=== PATIENT | female | born 1950 | race Caucasian/White ===

== ENCOUNTER 2016-06-26 09:09 | Inpatient (IN) | payer OTHER ==
[2016-06-26] MEDS ORDERED: DUONEB 0.5 MG/3 MG NEB ONE (09:14)
[2016-06-26] MEDS ORDERED: SOLU-Medrol 125 MG VIAL IVP ONE (09:14)
[2016-06-26 09:15] VITALS: BMI 34.3
--- NOTE | 2016-06-26 09:16 | DR.GENAD ---
HPI - Complaint/Symptoms Chief Complaint Doctors Comments: Patient states that she had been having problems with breathing for the past three weeks. Has been diagnosed with bronchitis and the past three weeks has been receiving IM injections for bronchitis. Today her breathing became very labored. Patient denies a history of COPD and has only used inhalers this week. ROS - Review of Systems Eyes: No Symptoms Reported ENTM: No Symptoms Reported Respiratoy: No Symptoms Reported Cardiovascular: No Symptoms Reported Gastrointestinal/Abdominal: No Symptoms Reported Genitourinary: No Symptoms Reported Neurological: No Symptoms Reported Musculoskeletal: No Symptoms Reported Integumentary: No Symptoms Reported Hematologic/Lymphatic: No Symptoms Reported Endocrine: No Symptoms Reported Psychiatric: No Symptoms Reported All Other Systems: Reviewed and Negative PE - Vital Signs Vitals: Pulse Rate [Right Brachial] 110 Pulse Rate 115 Respiratory Rate 20 Blood Pressure [Left Arm] 129/79 Blood Pressure 171/110 O2 Sat by Pulse Oximetry 98 - General Limitations: No Limitations General Appearance: Alert, In Distress - Head Head Exam: Normal Inspection, Atraumatic - Eyes Eye exam: Normal Appearance, PERRL, EOMI - ENT ENT Exam: Normal Exam, Normal Oropharynx TM/Canal Exam: Bilateral Normal Nose Exam: Normal Nose Exam Mouth Exam: Normal Inspection Throat Exam: Normal Inspection - Neck Neck Exam: Normal Inspection - Chest Chest Inspection: Normal Inspection, Symmetric Chest Wall Rise - Respiratory Respiratory Exam: Accessory Muscle Use, Respiratory Distress Respiratory Exam: Bilateral Decreased Breath Sounds, Lower Wheezing - Cardiovascular Cardiovascular Exam: Regular Rate, Normal Rhythm - Abdominal Exam Abdominal Exam: Normal Inspection Abdominal Tenderness: negative: RUQ, RLQ, LUQ, LLQ, Epigastrium, Suprapubic, Diffuse, Mild, Moderate, Severe, Other - Extremities Extremities Exam: Normal Inspection, Edema (2-3+pitting) - Back Back Exam: Normal Inspection - Neurologic Neurological Exam: Alert, Oriented X3, CN II-XII Intact - Psychiatric Psychiatric Exam: Normal Affect, Normal Mood - Skin Skin Exam: Warm, Dry, Intact Course - Treatment Treatment: Duo Neb, Solu Medrol oxygen. Lungs clear. 0950 - Reevaluation 1st: Improved ROR - Labs Reviewed Result Diagrams: 06/26/16 09:33 06/26/16 09:33 Laboratory: WBC 16.2 X10^3/uL (3.6-10.0) H 06/26/16 09:33 RBC 4.52 X10^6/uL (3.5-5.4) 06/26/16 09:33 Hgb 12.5 g/dL (12.0-16.0) 06/26/16 09:33 Hct 37.9 % (36.0-47.0) 06/26/16 09:33 MCV 83.7 fL (80.0-100.0) 06/26/16 09:33 MCH 27.7 pg (27.0-34.0) 06/26/16 09:33 MCHC 33.1 g/dL (33.0-35.0) 06/26/16 09:33 RDW 13.0 % (11.6-16.5) 06/26/16 09:33 Plt Count 501 X10^3/uL (150.0-450.0) H 06/26/16 09:33 MPV 7.3 fL (7.4-11.0) L 06/26/16 09:33 Neut % 79.3 % (42.0-75.0) H 06/26/16 09:33 Lymph % 16.2 % (21.0-51.0) L 06/26/16 09:33 [place] % 4.0 % (0.0-13.0) 06/26/16 09:33 Eos % 0.3 % (0.9-2.9) L 06/26/16 09:33 Baso % 0.2 % (0.2-1.0) 06/26/16 09:33 Neut # 12.9 x10^3/uL (2.2-4.8) H 06/26/16 09:33 Lymph # 2.6 X10^3/uL (1.3-2.9) 06/26/16 09:33 [place] # 0.6 x10^3/uL (0.3-0.8) 06/26/16 09:33 Eos # 0.0 x10^3/uL (0.0-0.2) 06/26/16 09:33 Baso # 0.0 X10^3/uL (0.0-0.1) 06/26/16 09:33 Absolute Nucleated RBC 0.0 /100WBC 06/26/16 09:33 D-Dimer 2130 ng/mL (0-400) H* 06/26/16 09:33 Sample Site Lra 06/26/16 13:30 ABG pH 7.490 (7.35-7.45) H 06/26/16 13:30 ABG pCO2 37.0 mmHg (35.0-45.0) 06/26/16 13:30 ABG pO2 44.0 mmHg (80.0-100.0) L* 06/26/16 13:30 ABG HCO3 28.2 mmol/L (22-26) H 06/26/16 13:30 ABG O2 Saturation 84.0 % (90-100) L* 06/26/16 13:30 ABG Base Excess 4.7 mmol/L (-2.0-2.0) H 06/26/16 13:30 Dev Test Pos 06/26/16 13:30 A-a Gradient 59.0 mmHg 06/26/16 13:30 FiO2 21.000 06/26/16 13:30 Blood Gas Comments Wilber well cs 06/26/16 13:30 Sodium 145 mmol/L (136-145) 06/26/16 09:33 Corrected Sodium 148 mmol/L (136-145) H 06/26/16 09:33 Potassium 3.5 mmol/L (3.5-5.1) 06/26/16 09:33 Chloride 106 mmol/L (98-107) 06/26/16 09:33 Carbon Dioxide 24.3 mmol/L (21-32) 06/26/16 09:33 BUN 31 mg/dL (7-18) H 06/26/16 09:33 Creatinine 1.14 mg/dL (0.55-1.02) H 06/26/16 09:33 Est GFR (MDRD) Af Amer > 60 (>60) 06/26/16 09:33 Est GFR (MDRD) Non-Af 51 (>60) L 06/26/16 09:33 Glucose 206 mg/dL (65-99) H 06/26/16 09:33 Calcium 8.8 mg/dL (8.5-10.1) 06/26/16 09:33 Corrected Calcium 9.5 mg/dL (8.5-10.1) 06/26/16 09:33 Total Bilirubin 0.40 mg/dL (0.2-1.0) 06/26/16 09:33 AST 25 Units/L (15-37) 06/26/16 09:33 ALT 47 Units/L (12-78) 06/26/16 09:33 Alkaline Phosphatase 69 Units/L (46-116) 06/26/16 09:33 Total Protein 7.9 g/dL (6.4-8.2) 06/26/16 09:33 Albumin 3.1 g/dL (3.4-5.0) L 06/26/16 09:33 Globulin 4.8 g/dL (2.5-4.5) H 06/26/16 09:33 Albumin/Globulin Ratio 0.6 Ratio (1.1-2.1) L 06/26/16 09:33 - XRAY XRAY Interpreted by: Radiologist (Chest:The heart is enlarged. No definite congestive heart failure is noted. No definite acute alveolar infiltrates are identified in the right lung and left upper lung field. There is increased density in the retrocardiac area of the left lower lobe which could be on the basis of atelectasis, infiltrate, effusion or a combination. Upright PA and lateral chest examination may be of further diagnostic value. Repeat CxR (two view) The heart remains enlarged. No congestive heart failure is noted. The right lung and left upper lung borges are clear. Subsegmental atelectasis is present in the left perihilar region. The increased density described in the retrocardiac area of the left lower lobe on the prior examination appears to be predominately due to elevation of the left hemidiaphragm. No definite infiltrate or pleural effusion is identified.) - Diagnosis Discharge Problem: Respiratory distress, Cardiomegaly Reactive airway disease with wheezing Qualifiers: Asthma severity: unspecified severity Asthma complication type: with acute exacerbation Qualified Code(s): J45.901 - Unspecified asthma with (acute) exacerbation - Discharge Plan Condition: Stable - Follow ups/Referrals Follow ups/Referrals: CHAYITO SU[facility] [Primary Care Provider] - 3 days - Instructions
[2016-06-26] MEDS ORDERED: SOLU-Medrol 125 MG VIAL ONE (09:17)
[2016-06-26] MEDS: NS 1000 ML 1,000 ML IV SCH (09:19)
--- NOTE | 2016-06-26 09:36 | RAD ---
HISTORY: Dyspnea Study: Chest one view Comparison: None Findings: The heart is enlarged. No definite congestive heart failure is noted. No definite acute alveolar inf iltrates are identified in the right lung and left upper lung field. There is increased density in t he retrocardiac area of the left lower lobe which could be on the basis of atelectasis, infiltrate, effusion or a combination. Upright PA and lateral chest examination may be of further diagnostic arthur ue. IMPRESSION: Cardiomegaly without congestive heart failure Persistent increased density in the retrocardiac area of the left lower lobe. Differential diagnosis and recommendations as above Reported By:
[2016-06-26 09:43] LABS: BASOPHILS % (AUTO) 0.2 % (0.2-1.0); EOSINOPHILS % (AUTO) 0.3 % (0.9-2.9); HEMATOCRIT 37.9 % (36.0-47.0); HEMOGLOBIN 12.5 g/dL (12.0-16.0); LYMPHOCYTES # (AUTO) 2.6 X10^3/uL (1.3-2.9); LYMPHOCYTES % (AUTO) 16.2 % (21.0-51.0); MEAN CORPUSCULAR HEMOGLOBIN 27.7 pg (27.0-34.0); MEAN CORPUSCULAR HGB CONC 33.1 g/dL (33.0-35.0); MEAN CORPUSCULAR VOLUME 83.7 fL (80.0-100.0); MEAN PLATELET VOLUME 7.3 fL (7.4-11.0); MONOCYTES # (AUTO) 0.6 x10^3/uL (0.3-0.8); NEUTROPHILS # (AUTO) 12.9 x10^3/uL (2.2-4.8); NEUTROPHILS % (AUTO) 79.3 % (42.0-75.0); PLATELET COUNT 501 X10^3/uL (150.0-450.0); RED BLOOD COUNT 4.52 X10^6/uL (3.5-5.4); WHITE BLOOD COUNT 16.2 X10^3/uL (3.6-10.0)
[2016-06-26 09:53] LABS: ALANINE AMINOTRANSFERASE 47 Units/L (12-78); ALBUMIN 3.1 g/dL (3.4-5.0); ALKALINE PHOSPHATASE 69 Units/L (46-116); ASPARTATE AMINO TRANSFERASE 25 Units/L (15-37); BLOOD UREA NITROGEN 31 mg/dL (7-18); CALCIUM 8.8 mg/dL (8.5-10.1); CARBON DIOXIDE 24.3 mmol/L (21-32); CHLORIDE 106 mmol/L (98-107); COR CA(FOR HYPOALB) 9.5 mg/dL (8.5-10.1); COR NA(FOR HYPERGLY) 148 mmol/L (136-145); CREATININE 1.14 mg/dL (0.55-1.02); GLUCOSE 206 mg/dL (65-99); SODIUM 145 mmol/L (136-145); TOTAL PROTEIN 7.9 g/dL (6.4-8.2); eGFR BLACK RACES > 60 (>60); eGFR NON BLACK RACES 51 (>60)
--- NOTE | 2016-06-26 10:13 | RAD ---
HISTORY: Follow up abnormal chest x-ray Study: Chest two-view Comparison: June 26, 2016 9:29 a.m. Findings: The heart remains enlarged. No congestive heart failure is noted. The right lung and left upper lung borges are clear. Subsegmental atelectasis is present in the left perihilar region. The increased d ensity described in the retrocardiac area of the left lower lobe on the prior examination appears to be predominantly due to elevation of the left hemidiaphragm. No definite infiltrate or pleural effu fartun is identified. IMPRESSION: Cardiomegaly without congestive heart failure Subsegmental atelectasis left perihilar region The increased density noted on the AP film is demonstrated to be due to elevated left hemidiaphragm. Reported By:
[2016-06-26] MEDS ORDERED: LASIX IVP ONE ×2 (10:36→10:37)
--- NOTE | 2016-06-26 12:38 | CT ---
CTA chest with contrast per pulmonary embolism protocol Indication: Shortness breath with elevated D-dimer Comparison: none available Technique: Multiple axial images of the chest were obtained from the thoracic inlet to the upper abd omen after the administration of IV contrast.Coronal and Sagittal MIP images were also provided. Radiation dose reduction techniques were performed utilizing adjustment for MA/kVP based on patient body size. Findings: No central or segmental pulmonary arterial filling defect is identified. There is normal caliber of the pulmonary artery without CT evidence or right heart strain. The thyroid gland is normal. Heart size is enlarged with a small pericardial effusion. This the thor acic aorta is normal in caliber and configuration. Small amount of pericardial recess fluid. Moderat e left and small right-sided pleural effusions with interlobular septal thickening consistent with i nterstitial edema. There is compressive atelectasis of the lingula and bilateral lower lobes. Small nodular consolidation within the right upper lobe on axial image 52 likely represents infiltrate or scarring; however correlation followup chest CT in 12 months is recommended to ensure stability/reso lution. No enlarged mediastinal or hilar lymphadenopathy. Imaging of the upper abdomen demonstrates no acute inflammatory process. Review of bone windows demonstrates no acute osseous abnormality. IMPRESSION: 1. No PTE identified. 2. Cardiomegaly with moderate left and small right-sided pleural effusions with interlobular septal thickening consistent with volume overload and CHF. 3. Small round nodular opacity within the right upper lobe likely represents an infiltrate or scarri ng; however, correlation followup chest CT in 12 months is recommended to ensure stability/resolutio n. Reported By:
[2016-06-26 13:36] LABS: ABG BASE EXCESS 4.7 mmol/L (-2.0-2.0); ABG HCO3 28.2 mmol/L (22-26)
[2016-06-26 13:39] LABS: ABG ALLEN TEST POS
[2016-06-26] MEDS ORDERED: ZOFRAN INJ 4 MG VIAL IVP PRN (14:10)
[2016-06-26] MEDS ORDERED: MORPHINE SULFATE INJ 4 MG IVP PRN (14:11)
[2016-06-26] MEDS ORDERED: VENTOLIN or PROAIR HFA INH PRN (14:39)
[2016-06-26] MEDS: DUONEB 0.5 MG/3 MG NEB SCH ×2 (17:01→20:54)
[2016-06-26] MEDS: PriLOSEC PO SCH (20:10)
[2016-06-26] MEDS: LASIX IVP SCH (20:10)
[2016-06-26] MEDS: VITAMIN D3 PO SCH (20:11)
[2016-06-26] MEDS: PULMICORT NEB TX 0.5 MG NEB SCH (20:54)
[2016-06-26] MEDS ORDERED: CHOLECALCIFEROL PO SCH (21:00)
[2016-06-27] MEDS: DUONEB 0.5 MG/3 MG NEB SCH ×6 (00:43→21:04)
[2016-06-27] MEDS: NS 1000 ML 1,000 ML IV SCH ×3 (02:51→20:27)
[2016-06-27 07:03] LABS: ALANINE AMINOTRANSFERASE 38 Units/L (12-78); ALBUMIN 2.7 g/dL (3.4-5.0); ALKALINE PHOSPHATASE 60 Units/L (46-116); ASPARTATE AMINO TRANSFERASE 14 Units/L (15-37); BLOOD UREA NITROGEN 27 mg/dL (7-18); CALCIUM 8.6 mg/dL (8.5-10.1); CARBON DIOXIDE 26.2 mmol/L (21-32); CHLORIDE 107 mmol/L (98-107); COR CA(FOR HYPOALB) 9.6 mg/dL (8.5-10.1); COR NA(FOR HYPERGLY) 149 mmol/L (136-145); CREATININE 1.02 mg/dL (0.55-1.02); GLUCOSE 231 mg/dL (65-99); SODIUM 146 mmol/L (136-145); TOTAL PROTEIN 7.2 g/dL (6.4-8.2); eGFR BLACK RACES > 60 (>60); eGFR NON BLACK RACES 58 (>60)
[2016-06-27 07:34] LABS: BASOPHILS % (AUTO) 0.1 % (0.2-1.0); HEMATOCRIT 36.7 % (36.0-47.0); HEMOGLOBIN 11.9 g/dL (12.0-16.0); LYMPHOCYTES # (AUTO) 0.9 X10^3/uL (1.3-2.9); LYMPHOCYTES % (AUTO) 7.1 % (21.0-51.0); MEAN CORPUSCULAR HEMOGLOBIN 27.3 pg (27.0-34.0); MEAN CORPUSCULAR HGB CONC 32.4 g/dL (33.0-35.0); MEAN CORPUSCULAR VOLUME 84.2 fL (80.0-100.0); MEAN PLATELET VOLUME 7.4 fL (7.4-11.0); MONOCYTES # (AUTO) 0.3 x10^3/uL (0.3-0.8); MONOCYTES % (AUTO) 2.7 % (0.0-13.0); NEUTROPHILS # (AUTO) 11.1 x10^3/uL (2.2-4.8); NEUTROPHILS % (AUTO) 90.1 % (42.0-75.0); PLATELET COUNT 444 X10^3/uL (150.0-450.0); RED BLOOD COUNT 4.36 X10^6/uL (3.5-5.4); RED CELL DISTRIBUTION WIDTH 13.1 % (11.6-16.5); WHITE BLOOD COUNT 12.4 X10^3/uL (3.6-10.0)
--- NOTE | 2016-06-27 07:47 | RAD ---
HISTORY: Chest pain Study: Single view chest. Comparison: June 26, 2016. Findings: The trachea is midline. The cardiomediastinal silhouette remains enlarged. Chronic right basilar par enchymal disease remains. There is unchanged left midlung zone and left lower lobe airspace disease with a small to moderate size left basilar effusion. No other cardiopulmonary changes from prior obs erved. There is no pneumothorax. The bony thorax is grossly unchanged. IMPRESSION: 1. Unchanged left midlung zone and left lower lobe pleural parenchymal disease. 2. Cardiomegaly with chronic background interstitial changes, suggesting COPD. Reported By:
[2016-06-27 08:29] LABS: PLATELET MORPHOLOGY COMMENT NORMAL (NORMAL)
[2016-06-27] MEDS: VITAMIN D3 PO SCH ×2 (08:38→20:28)
[2016-06-27] MEDS: LASIX IVP SCH ×2 (08:38→20:28)
[2016-06-27] MEDS: ASPIRIN 81 MG CHEWTAB PO SCH (08:39)
[2016-06-27] MEDS: NORVASC TAB 5 MG PO SCH (08:39)
[2016-06-27] MEDS: PriLOSEC PO SCH (08:39)
[2016-06-27] MEDS: GLUCOTROL XL PO SCH (08:39)
[2016-06-27] MEDS: PULMICORT NEB TX 0.5 MG NEB SCH ×2 (09:08→21:04)
[2016-06-27] MEDS: LEVAQUIN PREMIX IV 750 MG 750 MG/150 ML BAG IV SCH (11:30)
[2016-06-27] MEDS: SOLU-Medrol 40 MG VIAL IVP SCH ×2 (14:08→22:13)
--- NOTE | 2016-06-27 14:53 | DR.H&P ---
H&P - History & Physical for Day of: H&P Date: 06/26/16 - Chief Complaint Chief Complaint: SHORTNESS OF BREATH, COUGH, CHEST CONGESTION - Allergies Allergies/Adverse Reactions: Allergies Allergy/AdvReac Type Severity Reaction Status Date / Time No Known Drug Allergy Allergy Verified 06/26/16 09:09 - History of Present Illness History of Present Illness: THIS IS A 65 YEAR OLD FEMALE, WHO IS FOLLOWED BY BELEN WASSERMAN. SHE PRESENTS TO THE EMERGENCY ROOM WITH COMPLAINTS OF SHORTNESS OF BREATH, COUGH, AND CHEST CONGESTION. PATIENT REPORTS SHE HAS BEEN TREATED FOR BRONCHITIS EARLIER IN THE WEEK BY HER PCP WITH IM ANTIBIOTIC INJECTIONS FOR THE PAST THREE WEEKS. SHE REPORTS WORSENING SYMPTOMS TODAY. SHE IS NOTED WITH LABORED RESPIRATIONS ON ARRIVAL WITH ACCESSORY MUSCLE USE. ON AUSCULTATION, LUNGS ARE DIMINISHED WITH BILATERAL LOWER LOBE WHEEZING. LABS, CHEST XRAY OBTAINED. CBC WNL EXCEPT: WBC 16.2. CMP WNLE EXCEPT: BUN/CREAT 31/1.14, GFR 51 , GLUCOSE 206, ALBUMIN 3.1. D-DIMER 2130. ABG ABNORMALS: PH 7.490, PO2 44.0, HCO3 28.2, O2 SATURATION 84.0, FIO2 21.0. CHEST CTA REPORTS NO PTE INDENTIFIED ; MODERATE LEFT AND SMALL RIGHT-SIDED PLEURAL EFFUSIONS; SMALL ROUND NODULAR OPACITY WITHIN THE RIGHT UPPER LOBE. PATIENT RECEIVED IV FLUIDS, DUONEBS, SOLUMEDROL, AND OXYGEN IN THE ER. WE WILL ADMIT PATIENT FOR FURTHER TREATMENT AND EVALUATION. WE WILL START DUONEBS, LASIX AND CONTINUE TO MONITOR. WE WILL FOLLOW UP WITH LABS AND CHEST XRAY IN AM. - Past Medical History Past Medical History: Diabetes, GERD, Hypertension Additional Medical History: [employer] Nailer is Dr. Bellamy- had a cardiac workup 7 years ago that was normal - Past Surgical History Surgical History: Hysterectomy - Family History Family Medical History: Diabetes Mellitus, Hypertension - Social History Does patient currently use any type of tobacco product: No Have you used tobacco products in the last 12 months: No Type of Tobacco Use: None Does any household member use tobacco: No Alcohol Use: None - Medications Home Medications: Albuterol Sulfate 0.083 % IN Q6H 06/26/16 [History Confirmed 06/26/16] Albuterol Sulfate [Ventolin Hfa Inhaler] 2 puff INH QID PRN 06/26/16 [History Confirmed 06/26/16] Amlodipine Besylate [NORVASC 5 MG *] 5 mg PO DAILY 06/26/16 [History Confirmed 06/26/16] Aspirin [Aspirin 81 mg Chewtab] 81 mg PO DAILY 06/26/16 [History Confirmed 06/26] Cholecalciferol [Vitamin D] 1,000 unit PO BID 06/26/16 [History Confirmed ] Glipizide [Glipizide XL 5 mg] 5 mg PO DAILY 06/26/16 [History Confirmed 06/26/16 ] Levofloxacin [Levaquin Tab 500 mg] 500 mg PO Q24H 06/26/16 [History Confirmed ] Omeprazole [Prilosec] 20 mg PO BID 06/26/16 [History Confirmed 06/26/16] - Review of Systems Constitutional: Weakness, Malaise Eyes: No Symptoms Reported. denies: Pain, Vision Change, Conjunctivae Inflammation, Eyelid Inflammation, Redness ENT: No Symptoms Reported. denies: Ear Pain, Ear Discharge, Nose Pain, Nose Discharge, Nose Congestion, Mouth Pain, Mouth Swelling, Throat Pain, Throat Swelling Respiratory: Cough, Shortness of Breath, SOB with Excertion, Sputum, Wheezing. denies: Hemoptysis, Pleuritic Pain Cardiovascular: No Symptoms Reported. denies: Chest Pain, Palpitations, Orthopnea, Paroxysmal Noc. Dyspnea, Edema, Light Headedness Gastrointestinal: No Symptoms Reported. denies: Nausea, Vomiting, Abdominal Pain, Diarrhea, Constipation, Melena, Hematochezia Genitourinary: No Symptoms Reported. denies: Dysuria, Frequency, Incontinence, Hematuria, Retention Musculoskeletal: No Symptoms Reported. denies: Shoulder Pain, Arm Pain, Back Pain, Hand Pain, Leg Pain, Foot Pain, Neck Pain Skin: No Symptoms Reported. denies: Rash, Lesions, Jaundice, Bruising, Wound, Ecchymosis Neurological: No Symptoms Reported. denies: Weakness, Numbness, Incoordination , Change in Speech, Confusion, Seizures - Physical Exam Vital Signs: Temperature 98.4 F Pulse Rate [Right Brachial] 111 Pulse Rate 100 Respiratory Rate 18 Blood Pressure [Left Arm] 120/75 O2 Sat by Pulse Oximetry 97 Oriented: Normal, Time, Person, Place Eyes: Normal. negative: Blurred Vision, Diplopia, Discharge, Pain, Redness, Photophobia Ear: Normal. negative: Swelling, Ecchymosis, Hemotypanum, Abrasion, Laceration Nose: Normal. negative: Injected, Discharge, Blood Throat: Red, Dry. negative: Tonsillar Hypertrophy, Exudate Respiratory: RUL Exp. Wheeze, LLL Exp. Wheeze Cardiovascular: Normal. negative: Murmur, Edema : Normal. negative: Dysuria, Hematuria, Frequency, Discharge, Bleeding, Auscultation: Bowel Sounds: Normal. negative: Bruit Palpation: Normal. negative: Spleen Enlarged, Liver Enlarged, Mass Pulsatile Tenderness: Normal. negative: Rebound, Guarding, Rigidity Skin: Decreased Turgur. negative: Diaphoresis, Wound, Bruising, Ecchymosis Musculoskeletal: Normal Psychiatric: Normal Mood Description: Calm, Appropriate Affect: Normal Speech Pattern: Clear, Appropriate - Assessment/Plan (1) Reactive airway disease with wheezing Qualifiers: Asthma severity: unspecified severity Asthma complication type: with acute exacerbation Qualified Code(s): J45.901 - Unspecified asthma with (acute) exacerbation Status: Acute Plan: ADMIT PATIENT, START DUONEBS, SUPPLEMENTAL OXYGEN, LASIX IV BID, MONITOR LABS AND CHEST XRAY. (2) Respiratory distress Status: Acute Plan: ABOVE. (3) Cardiomegaly Status: Chronic
--- NOTE | 2016-06-27 15:06 | PCM.PROG ---
Progress Note - Progress Note for Day of Date: 06/27/16 - Subjective Subjective: PATIENT CONTINUES WITH SHORTNESS OF BREATH WHILE ON SUPPLEMENTAL OXYGEN. SHE IS NOTED WITH A PERSISTENT, NON-PRODUCTIVE COUGH. A SPUTUM SAMPLE WAS COLLECTED YESTERDAY AND IS PENDING. ON AUSCULTATION, LUNGS ARE NOTED WITH BILATERAL WHEEZING THROUGHOUT. CBC WNL EXCEPT: WBC 12.4, HGB 11.9. CMP WNL EXCEPT: SODIUM 146, BUN 27, GFR 58, GLUCOSE 231, ALBUMIN 2.7. BNP 1290. CHEST XRAY REPORTS: UNCHANGED LEFT MIDLUNG ZONE AND LEFT LOWER LOBE PLEURAL PARENCHYMAL DISEASE; CARDIOMEGALY WITH CHRONIC BACKGROUND INTERSTITIAL CHANGES. WE WILL OBTAIN BLOOD CULTURES, START LEVAQUIN IV, SOLUMEDROL, AND CONTINUE DUONEBS, LASIX, AND MONITOR LABS AND CHEST XRAY. - Past Medical Family Social History Past Med/Fam/Surg Hx: No changes since H&P Allergies: Allergies No Known Drug Allergy Allergy (Verified 06/26/16 09:09) - Review of Systems ROS: No change since H&P - Vital Signs and I&O's Vital Signs: Temperature 98.4 F Pulse Rate [Right Brachial] 111 Pulse Rate 100 Respiratory Rate 18 Blood Pressure [Left Arm] 120/75 O2 Sat by Pulse Oximetry 97 Intake and Output: Intake & Output 06/25/16 06/26/16 06/27/16 06/28/16 11:59 11:59 11:59 11:59 Intake Total 2403 Output Total 1600 Balance 803 - Physical Exam Oriented: Normal, Time, Person, Place Eyes: Normal. negative: Blurred Vision, Diplopia, Discharge, Pain, Redness, Photophobia Ear: Normal. negative: Swelling, Ecchymosis, Hemotypanum, Abrasion, Laceration Nose: Normal. negative: Injected, Discharge, Blood Throat: Red, Dry. negative: Tonsillar Hypertrophy, Exudate Respiratory: Generalized, Wheezes Cardiovascular: Normal. negative: Murmur, Edema : Normal. negative: Dysuria, Hematuria, Frequency, Discharge, Bleeding, Auscultation: Bowel Sounds: Normal. negative: Bruit Palpation: Normal. negative: Spleen Enlarged, Liver Enlarged, Mass Pulsatile Tenderness: Normal. negative: Rebound, Guarding, Rigidity Skin: Decreased Turgur. negative: Diaphoresis, Wound, Bruising, Ecchymosis Musculoskeletal: Normal Psychiatric: Normal Mood Description: Calm, Appropriate Affect: Normal Speech Pattern: Clear, Appropriate - Laboratory and Diagnostics Result Diagrams: 06/27/16 05:40 06/27/16 05:40 Labs: 06/26/16 18:34 Sputum - Expectorated Sputum Sputum Culture - Preliminary 06/26/16 18:34 Sputum - Expectorated Sputum - Final Laboratory WBC 12.4 X10^3/uL (3.6-10.0) H 06/27/16 05:40 RBC 4.36 X10^6/uL (3.5-5.4) 06/27/16 05:40 Hgb 11.9 g/dL (12.0-16.0) L 06/27/16 05:40 Hct 36.7 % (36.0-47.0) 06/27/16 05:40 MCV 84.2 fL (80.0-100.0) 06/27/16 05:40 MCH 27.3 pg (27.0-34.0) 06/27/16 05:40 MCHC 32.4 g/dL (33.0-35.0) L 06/27/16 05:40 RDW 13.1 % (11.6-16.5) 06/27/16 05:40 Plt Count 444 X10^3/uL (150.0-450.0) 06/27/16 05:40 Plt Count Comment Adequate (ADEQUATE) 06/27/16 05:40 MPV 7.4 fL (7.4-11.0) 06/27/16 05:40 Neut % 90.1 % (42.0-75.0) H 06/27/16 05:40 Lymph % 7.1 % (21.0-51.0) L 06/27/16 05:40 [place] % 2.7 % (0.0-13.0) 06/27/16 05:40 Eos % 0.0 % (0.9-2.9) L 06/27/16 05:40 Baso % 0.1 % (0.2-1.0) L 06/27/16 05:40 Neut # 11.1 x10^3/uL (2.2-4.8) H 06/27/16 05:40 Lymph # 0.9 X10^3/uL (1.3-2.9) L 06/27/16 05:40 [place] # 0.3 x10^3/uL (0.3-0.8) 06/27/16 05:40 Eos # 0.0 x10^3/uL (0.0-0.2) 06/27/16 05:40 Baso # 0.0 X10^3/uL (0.0-0.1) 06/27/16 05:40 Absolute Nucleated RBC 0.1 /100WBC 06/27/16 05:40 Total Counted 100 06/27/16 05:40 Neutrophils % (Manual) 96 % (39-76) H 06/27/16 05:40 Lymphocytes % (Manual) 2 % (13-43) L 06/27/16 05:40 Monocytes % (Manual) 2 % (4-9) L 06/27/16 05:40 Plt Morphology Comment Normal (NORMAL) 06/27/16 05:40 RBC Morphology Normal (NORMAL) 06/27/16 05:40 D-Dimer 2130 ng/mL (0-400) H* 06/26/16 09:33 Sample Site Lra 06/26/16 13:30 ABG pH 7.490 (7.35-7.45) H 06/26/16 13:30 ABG pCO2 37.0 mmHg (35.0-45.0) 06/26/16 13:30 ABG pO2 44.0 mmHg (80.0-100.0) L* 06/26/16 13:30 ABG HCO3 28.2 mmol/L (22-26) H 06/26/16 13:30 ABG O2 Saturation 84.0 % (90-100) L* 06/26/16 13:30 ABG Base Excess 4.7 mmol/L (-2.0-2.0) H 06/26/16 13:30 Dev Test Pos 06/26/16 13:30 A-a Gradient 59.0 mmHg 06/26/16 13:30 FiO2 21.000 06/26/16 13:30 Blood Gas Comments Wilber well cs 06/26/16 13:30 Sodium 146 mmol/L (136-145) H 06/27/16 05:40 Corrected Sodium 149 mmol/L (136-145) H 06/27/16 05:40 Potassium 4.0 mmol/L (3.5-5.1) 06/27/16 05:40 Chloride 107 mmol/L (98-107) 06/27/16 05:40 Carbon Dioxide 26.2 mmol/L (21-32) 06/27/16 05:40 BUN 27 mg/dL (7-18) H 06/27/16 05:40 Creatinine 1.02 mg/dL (0.55-1.02) 06/27/16 05:40 Est GFR (MDRD) Af Amer > 60 (>60) 06/27/16 05:40 Est GFR (MDRD) Non-Af 58 (>60) L 06/27/16 05:40 Glucose 231 mg/dL (65-99) H 06/27/16 05:40 Calcium 8.6 mg/dL (8.5-10.1) 06/27/16 05:40 Corrected Calcium 9.6 mg/dL (8.5-10.1) 06/27/16 05:40 Total Bilirubin 0.30 mg/dL (0.2-1.0) 06/27/16 05:40 AST 14 Units/L (15-37) L 06/27/16 05:40 ALT 38 Units/L (12-78) 06/27/16 05:40 Alkaline Phosphatase 60 Units/L (46-116) 06/27/16 05:40 B-Natriuretic Peptide 1290 pg/mL (0-79) H* 06/27/16 05:40 Total Protein 7.2 g/dL (6.4-8.2) 06/27/16 05:40 Albumin 2.7 g/dL (3.4-5.0) L 06/27/16 05:40 Globulin 4.5 g/dL (2.5-4.5) 06/27/16 05:40 Albumin/Globulin Ratio 0.6 Ratio (1.1-2.1) L 06/27/16 05:40 - Plan (1) Pneumonia Status: Acute Qualifiers: Pneumonia type: due to unspecified organism Aspiration pneumonia type: A Laterality: left Lung location: lower lobe of lung Qualified Code(s): J18.1 - Lobar pneumonia, unspecified organism Plan: OBTAIN BLOOD CULTURES, SPUTUM CULTURE PENDING, START LEVAQUIN IV, SOLUMEDROL, CONTINUE DUONEBS, SUPPLEMENTAL OXYGEN, MONITOR LABS AND CHEST XRAY. (2) Reactive airway disease with wheezing Status: Acute Qualifiers: Asthma severity: unspecified severity Asthma complication type: with acute exacerbation Qualified Code(s): J45.901 - Unspecified asthma with (acute) exacerbation Plan: CONTINUE DUONEBS, SUPPLEMENTAL OXYGEN, LASIX IV BID, MONITOR LABS AND CHEST XRAY. (3) Shortness of breath Status: Acute Plan: ABOVE. (4) Respiratory distress Status: Acute Plan: ABOVE. (5) Cardiomegaly Status: Chronic (6) Hypertension Status: Chronic Qualifiers: Hypertension type: essential hypertension Qualified Code(s): I10 - Essential (primary) hypertension (7) GERD (gastroesophageal reflux disease) Status: Chronic Qualifiers: Esophagitis presence: esophagitis presence not specified Qualified Code(s) : K21.9 - Gastro-esophageal reflux disease without esophagitis (8) Diabetes Status: Chronic Qualifiers: Diabetes mellitus type: type 2 Diabetes mellitus complication status: with hyperglycemia Diabetes mellitus complication detail: D Diabetic retinopathy severity: D Proliferative retinopathy type: P Diabetes mellitus macular edema: D Diabetes mellitus intermediate frame tender insulin use: without intermediate frame tender use Laterality: L Chronic kidney disease stage: C Qualified Code(s): E11.65 - Type 2 diabetes mellitus with hyperglycemia
[2016-06-27] MEDS: PROTONIX INJ 40 MG VIAL IVP SCH (16:11)
[2016-06-27] MEDS: PEPCID 20 MG IV PREMIX* 20 MG/50 ML BAG IV SCH ×2 (16:11→20:28)
[2016-06-27] MEDS: HumuLIN R SC PRN ×2 (16:27→21:10)
[2016-06-28] MEDS: DUONEB 0.5 MG/3 MG NEB SCH ×6 (00:50→21:25)
[2016-06-28] MEDS: NS 1000 ML 1,000 ML IV SCH (03:25)
[2016-06-28 06:00] LABS: BASOPHILS % (AUTO) 0.1 % (0.2-1.0); HEMATOCRIT 35.6 % (36.0-47.0); HEMOGLOBIN 11.6 g/dL (12.0-16.0); LYMPHOCYTES # (AUTO) 0.7 X10^3/uL (1.3-2.9); LYMPHOCYTES % (AUTO) 4.4 % (21.0-51.0); MEAN CORPUSCULAR HEMOGLOBIN 27.5 pg (27.0-34.0); MEAN CORPUSCULAR HGB CONC 32.5 g/dL (33.0-35.0); MEAN CORPUSCULAR VOLUME 84.6 fL (80.0-100.0); MEAN PLATELET VOLUME 7.5 fL (7.4-11.0); MONOCYTES # (AUTO) 0.2 x10^3/uL (0.3-0.8); NEUTROPHILS # (AUTO) 15.1 x10^3/uL (2.2-4.8); NEUTROPHILS % (AUTO) 94.5 % (42.0-75.0); PLATELET COUNT 446 X10^3/uL (150.0-450.0); RED BLOOD COUNT 4.21 X10^6/uL (3.5-5.4); RED CELL DISTRIBUTION WIDTH 13.2 % (11.6-16.5)
[2016-06-28] MEDS: SOLU-Medrol 40 MG VIAL IVP SCH ×3 (06:15→22:05)
[2016-06-28] MEDS: HumuLIN R SC PRN ×4 (06:16→21:18)
[2016-06-28 07:05] LABS: ALBUMIN 2.7 g/dL (3.4-5.0); CALCIUM 8.2 mg/dL (8.5-10.1); COR CA(FOR HYPOALB) 9.2 mg/dL (8.5-10.1); CREATININE 1.2 mg/dL (0.55-1.02); TOTAL PROTEIN 6.8 g/dL (6.4-8.2)
[2016-06-28 08:28] LABS: PLATELET MORPHOLOGY COMMENT NORMAL (NORMAL)
[2016-06-28] MEDS: LASIX IVP SCH (09:13)
[2016-06-28] MEDS: VITAMIN D3 PO SCH ×2 (09:13→20:55)
[2016-06-28] MEDS: ASPIRIN 81 MG CHEWTAB PO SCH (09:13)
[2016-06-28] MEDS: LEVAQUIN PREMIX IV 750 MG 750 MG/150 ML BAG IV SCH (09:13)
[2016-06-28] MEDS: PROTONIX INJ 40 MG VIAL IVP SCH (09:13)
[2016-06-28] MEDS: PEPCID 20 MG IV PREMIX* 20 MG/50 ML BAG IV SCH ×2 (09:13→20:55)
[2016-06-28] MEDS: GLUCOTROL XL PO SCH (09:13)
[2016-06-28] MEDS: NORVASC TAB 5 MG PO SCH (09:13)
[2016-06-28] MEDS: PULMICORT NEB TX 0.5 MG NEB SCH ×2 (09:25→21:26)
[2016-06-28] MEDS ORDERED: LASIX IVP ONE ×2 (09:39→21:00)
--- NOTE | 2016-06-28 10:12 | RAD ---
HISTORY: Reactive airway disease, shortness of breath Study: AP chest obtained 5:58 a.m. Comparison: June 27, 2016 Findings: The trachea is midline . There is no widening or shift of mediastinum. The heart appears mildly enla rged. Silhouetting of the left diaphragm is noted due to adjacent infiltrate. The lungs are adequate ly aerated. Osseous structures are within normal limits for the patient's age left lower lobe consol idation has decreased in size since the previous study and appears to be improving. Fluid is noted i n the left minor fissure. IMPRESSION: 1. Mild cardiomegaly. Decrease in size of left lower lobe consolidation and infiltrate since the pre vious study consistent with slowly improving left lower lobe pneumonia. Reported By:
--- NOTE | 2016-06-28 17:53 | PCM.PROG ---
Progress Note - Progress Note for Day of Date: 06/28/16 - Subjective Subjective: PATIENT CONTINUES WITH SHORTNESS OF BREATH WHILE ON SUPPLEMENTAL OXYGEN. SHE IS NOTED WITH A PERSISTENT, NON-PRODUCTIVE COUGH. SPUTUM CULTURE IS NEGATIVE. ON AUSCULTATION, LUNGS ARE NOTED WITH BILATERAL HIGH-PITCHED WHEEZING THROUGHOUT. PATIENT REPORTS SHE HAD A CARDIAC WORKUP ABOUT 10 YEARS AGO WITH NO ABNORMAL FINDINGS. SHE REPORTS SHE HAS NOT FOLLOWED UP WITH FILLING HAND SINCE. CBC WNL EXCEPT: WBC 16.0, H/H 11.6/35.6. CMP WNL EXCEPT: BUN/CREAT 28/1.20, GFR 48, GLUCOSE 235, ALBUMIN 2.7. BLOOD CULTURES PENDING. CHEST XRAY REPORTS: DECREASE IN SIZE OF LEFT LOWER LOBE INFILTRATE CONSISTENT WITH SLOWLY IMPROVING LEFT LOWER LOBE PNEUMONIA. WE WILL DISCONTINUE IV FLUIDS , ADMINISTER LASIX IV BID FOR TWO DOSES, CONTINUE LEVAQUIN IV, SOLUMEDROL, AND CONTINUE DUONEBS, LASIX, AND MONITOR LABS AND CHEST XRAY. - Past Medical Family Social History Past Med/Fam/Surg Hx: No changes since H&P Allergies: Allergies No Known Drug Allergy Allergy (Verified 06/26/16 09:09) - Review of Systems ROS: No change since H&P - Vital Signs and I&O's Vital Signs: Temperature 98.4 F Pulse Rate [Right Brachial] 111 Pulse Rate 111 Respiratory Rate 20 Blood Pressure [Left Arm] 137/78 O2 Sat by Pulse Oximetry 95 Intake and Output: Intake & Output 06/26/16 06/27/16 06/28/16 06/29/16 11:59 11:59 11:59 11:59 Intake Total 2403 3884 1375 Output Total 1600 1600 1950 Balance 803 2284 -578 - Physical Exam Oriented: Normal, Time, Person, Place Eyes: Normal. negative: Blurred Vision, Diplopia, Discharge, Pain, Redness, Photophobia Ear: Normal. negative: Swelling, Ecchymosis, Hemotypanum, Abrasion, Laceration Nose: Normal. negative: Injected, Discharge, Blood Throat: Red, Dry. negative: Tonsillar Hypertrophy, Exudate Respiratory: Generalized, Wheezes Cardiovascular: Normal. negative: Murmur, Edema : Normal. negative: Dysuria, Hematuria, Frequency, Discharge, Bleeding, Auscultation: Bowel Sounds: Normal. negative: Bruit Palpation: Normal Tenderness: Normal. negative: Rebound, Guarding, Rigidity Skin: Decreased Turgur. negative: Diaphoresis, Wound, Bruising, Ecchymosis Musculoskeletal: Normal Psychiatric: Normal Mood Description: Calm, Appropriate Affect: Normal Speech Pattern: Clear, Appropriate - Laboratory and Diagnostics Result Diagrams: 06/28/16 03:25 06/28/16 03:25 Labs: 06/26/16 18:34 Sputum - Expectorated Sputum Sputum Culture - Final 06/26/16 18:34 Sputum - Expectorated Sputum - Final Laboratory WBC 16.0 X10^3/uL (3.6-10.0) H 06/28/16 03:25 RBC 4.21 X10^6/uL (3.5-5.4) 06/28/16 03:25 Hgb 11.6 g/dL (12.0-16.0) L 06/28/16 03:25 Hct 35.6 % (36.0-47.0) L 06/28/16 03:25 MCV 84.6 fL (80.0-100.0) 06/28/16 03:25 MCH 27.5 pg (27.0-34.0) 06/28/16 03:25 MCHC 32.5 g/dL (33.0-35.0) L 06/28/16 03:25 RDW 13.2 % (11.6-16.5) 06/28/16 03:25 Plt Count 446 X10^3/uL (150.0-450.0) 06/28/16 03:25 Plt Count Comment Adequate (ADEQUATE) 06/28/16 03:25 MPV 7.5 fL (7.4-11.0) 06/28/16 03:25 Neut % 94.5 % (42.0-75.0) H 06/28/16 03:25 Lymph % 4.4 % (21.0-51.0) L 06/28/16 03:25 [place] % 1.0 % (0.0-13.0) 06/28/16 03:25 Eos % 0.0 % (0.9-2.9) L 06/28/16 03:25 Baso % 0.1 % (0.2-1.0) L 06/28/16 03:25 Neut # 15.1 x10^3/uL (2.2-4.8) H 06/28/16 03:25 Lymph # 0.7 X10^3/uL (1.3-2.9) L 06/28/16 03:25 [place] # 0.2 x10^3/uL (0.3-0.8) L 06/28/16 03:25 Eos # 0.0 x10^3/uL (0.0-0.2) 06/28/16 03:25 Baso # 0.0 X10^3/uL (0.0-0.1) 06/28/16 03:25 Absolute Nucleated RBC 0.0 /100WBC 06/28/16 03:25 Total Counted 100 06/28/16 03:25 Neutrophils % (Manual) 97 % (39-76) H 06/28/16 03:25 Lymphocytes % (Manual) 3 % (13-43) L 06/28/16 03:25 Monocytes % (Manual) 2 % (4-9) L 06/27/16 05:40 Plt Morphology Comment Normal (NORMAL) 06/28/16 03:25 RBC Morphology Normal (NORMAL) 06/28/16 03:25 D-Dimer 2130 ng/mL (0-400) H* 06/26/16 09:33 Sample Site Lra 06/26/16 13:30 ABG pH 7.490 (7.35-7.45) H 06/26/16 13:30 ABG pCO2 37.0 mmHg (35.0-45.0) 06/26/16 13:30 ABG pO2 44.0 mmHg (80.0-100.0) L* 06/26/16 13:30 ABG HCO3 28.2 mmol/L (22-26) H 06/26/16 13:30 ABG O2 Saturation 84.0 % (90-100) L* 06/26/16 13:30 ABG Base Excess 4.7 mmol/L (-2.0-2.0) H 06/26/16 13:30 Dev Test Pos 06/26/16 13:30 A-a Gradient 59.0 mmHg 06/26/16 13:30 FiO2 21.000 06/26/16 13:30 Blood Gas Comments Wilber well cs 06/26/16 13:30 Sodium 144 mmol/L (136-145) 06/28/16 03:25 Corrected Sodium 147 mmol/L (136-145) H 06/28/16 03:25 Potassium 3.7 mmol/L (3.5-5.1) 06/28/16 03:25 Chloride 107 mmol/L (98-107) 06/28/16 03:25 Carbon Dioxide 25.0 mmol/L (21-32) 06/28/16 03:25 BUN 28 mg/dL (7-18) H 06/28/16 03:25 Creatinine 1.20 mg/dL (0.55-1.02) H 06/28/16 03:25 Est GFR (MDRD) Af Amer 58 (>60) L 06/28/16 03:25 Est GFR (MDRD) Non-Af 48 (>60) L 06/28/16 03:25 Glucose 235 mg/dL (65-99) H 06/28/16 03:25 Calcium 8.2 mg/dL (8.5-10.1) L 06/28/16 03:25 Corrected Calcium 9.2 mg/dL (8.5-10.1) 06/28/16 03:25 Total Bilirubin 0.20 mg/dL (0.2-1.0) 06/28/16 03:25 AST 12 Units/L (15-37) L 06/28/16 03:25 ALT 37 Units/L (12-78) 06/28/16 03:25 Alkaline Phosphatase 53 Units/L (46-116) 06/28/16 03:25 B-Natriuretic Peptide 1290 pg/mL (0-79) H* 06/27/16 05:40 Total Protein 6.8 g/dL (6.4-8.2) 06/28/16 03:25 Albumin 2.7 g/dL (3.4-5.0) L 06/28/16 03:25 Globulin 4.1 g/dL (2.5-4.5) 06/28/16 03:25 Albumin/Globulin Ratio 0.7 Ratio (1.1-2.1) L 06/28/16 03:25 - Plan (1) Pneumonia Status: Acute Qualifiers: Pneumonia type: due to unspecified organism Aspiration pneumonia type: A Laterality: left Lung location: lower lobe of lung Qualified Code(s): J18.1 - Lobar pneumonia, unspecified organism Plan: AWAIT BLOOD CULTURES C&S, CONTINUE LEVAQUIN IV, SOLUMEDROL, CONTINUE DUONEBS, SUPPLEMENTAL OXYGEN, MONITOR LABS AND CHEST XRAY. (2) Reactive airway disease with wheezing Status: Acute Qualifiers: Asthma severity: unspecified severity Asthma complication type: with acute exacerbation Qualified Code(s): J45.901 - Unspecified asthma with (acute) exacerbation Plan: ADMINISTER LASIX 40MG IV BID FOR TWO DOSES, DISCONTINUE IVF, CONTINUE DUONEBS, SUPPLEMENTAL OXYGEN, MONITOR LABS AND CHEST XRAY. (3) Shortness of breath Status: Acute Plan: ABOVE. (4) Respiratory distress Status: Acute Plan: ABOVE. (5) Cardiomegaly Status: Chronic (6) Hypertension Status: Chronic Qualifiers: Hypertension type: essential hypertension Qualified Code(s): I10 - Essential (primary) hypertension (7) GERD (gastroesophageal reflux disease) Status: Chronic Qualifiers: Esophagitis presence: esophagitis presence not specified Qualified Code(s) : K21.9 - Gastro-esophageal reflux disease without esophagitis (8) Diabetes Status: Chronic Qualifiers: Diabetes mellitus type: type 2 Diabetes mellitus complication status: with hyperglycemia Diabetes mellitus complication detail: D Diabetic retinopathy severity: D Proliferative retinopathy type: P Diabetes mellitus macular edema: D Diabetes mellitus director industrial insulin use: without prison use Laterality: L Chronic kidney disease stage: C Qualified Code(s): E11.65 - Type 2 diabetes mellitus with hyperglycemia
[2016-06-29] MEDS: DUONEB 0.5 MG/3 MG NEB SCH ×6 (00:57→21:54)
[2016-06-29 04:40] LABS: BASOPHILS % (AUTO) 0.1 % (0.2-1.0); HEMATOCRIT 35.7 % (36.0-47.0); HEMOGLOBIN 11.4 g/dL (12.0-16.0); LYMPHOCYTES # (AUTO) 0.8 X10^3/uL (1.3-2.9); LYMPHOCYTES % (AUTO) 4.6 % (21.0-51.0); MEAN CORPUSCULAR HEMOGLOBIN 27.4 pg (27.0-34.0); MEAN CORPUSCULAR VOLUME 85.7 fL (80.0-100.0); MEAN PLATELET VOLUME 7.3 fL (7.4-11.0); MONOCYTES # (AUTO) 0.3 x10^3/uL (0.3-0.8); MONOCYTES % (AUTO) 1.4 % (0.0-13.0); NEUTROPHILS # (AUTO) 16.6 x10^3/uL (2.2-4.8); NEUTROPHILS % (AUTO) 93.9 % (42.0-75.0); PLATELET COUNT 458 X10^3/uL (150.0-450.0); RED BLOOD COUNT 4.17 X10^6/uL (3.5-5.4); RED CELL DISTRIBUTION WIDTH 13.6 % (11.6-16.5); WHITE BLOOD COUNT 17.7 X10^3/uL (3.6-10.0)
[2016-06-29 04:52] LABS: ALBUMIN 2.7 g/dL (3.4-5.0); CALCIUM 8.5 mg/dL (8.5-10.1); CARBON DIOXIDE 27.2 mmol/L (21-32); COR CA(FOR HYPOALB) 9.5 mg/dL (8.5-10.1); CREATININE 1.26 mg/dL (0.55-1.02); TOTAL PROTEIN 6.8 g/dL (6.4-8.2)
[2016-06-29] MEDS: SOLU-Medrol 40 MG VIAL IVP SCH ×3 (06:02→22:00)
[2016-06-29] MEDS: HumuLIN R SC PRN ×3 (06:03→16:23)
[2016-06-29 06:05] LABS: PLATELET MORPHOLOGY COMMENT NORMAL (NORMAL)
--- NOTE | 2016-06-29 07:10 | RAD ---
HISTORY: Shortness of breath Study: Chest one view Comparison: June 28, 2016, June 27, 2016 Findings: The heart is enlarged. No congestive heart failure is noted. The lungs are hypoinflated. The right l hawa is clear. Perihilar subsegmental atelectasis is present in the left lung base. There is no defin ite residual left lower lobe infiltrate however there is subsegmental atelectasis in the left lung b ase. The bony thorax is unremarkable. IMPRESSION: Cardiomegaly without congestive heart failure Subsegmental atelectasis in the perihilar region of the left upper lobe and in the left lung base. Reported By:
[2016-06-29] MEDS: LEVAQUIN PREMIX IV 750 MG 750 MG/150 ML BAG IV SCH (08:45)
[2016-06-29] MEDS: PROTONIX INJ 40 MG VIAL IVP SCH (08:45)
[2016-06-29] MEDS: PEPCID 20 MG IV PREMIX* 20 MG/50 ML BAG IV SCH ×2 (08:45→21:00)
[2016-06-29] MEDS: ASPIRIN 81 MG CHEWTAB PO SCH (08:45)
[2016-06-29] MEDS: NORVASC TAB 5 MG PO SCH (08:45)
[2016-06-29] MEDS: GLUCOTROL XL PO SCH (08:45)
[2016-06-29 08:55] LABS: ABG ALLEN TEST POS; ABG BASE EXCESS 2.6 mmol/L (-2.0-2.0); ABG HCO3 27.2 mmol/L (22-26)
[2016-06-29] MEDS: VITAMIN D3 PO SCH ×2 (09:25→21:00)
[2016-06-29] MEDS: PULMICORT NEB TX 0.5 MG NEB SCH ×2 (09:29→21:54)
--- NOTE | 2016-06-29 12:40 | PCM.PROG ---
Progress Note - Progress Note for Day of Date: 06/29/16 - Subjective Subjective: PATIENT SITTING ON SIDE OF BED ON MORNING ROUNDS. PATIENT CONTINUES WITH SHORTNESS OF BREATH AT REST. DAUGHTER AT BEDSIDE. PATIENT REPORTS SHE TOOK HER OXYGEN OFF THIS MORNING FOR A FEW MINUTES AND O2 SATURATION DROPPED TO MID 70'S. A STAT ABG WAS OBTAINED ON ROOM AIR AND ABNORMALS ARE: PO2 37.0, HCO3 27.2 , O2 SATURATION 73.0. PATIENT DENIES A CARDIAC HISTORY. PATIENT REPORTS SHE IS VERY SHORT OF BREATH WITH EXERTION. A RECENT CT OF CHEST THREE DAYS AGO REPORTED NO PTE; CARDIOMEGALY WITH PLEURAL EFFUSION AND SMALL ROUND NODULAR OPACITY. SHE CONTINUES WITH A PERSISTENT, NON-PRODUCTIVE COUGH. ON AUSCULTATION , LUNGS ARE NOTED WITH BILATERAL WHEEZING THROUGHOUT. CBC WNL EXCEPT: WBC 17.7, H/H 11.4/35.7. CMP WNL EXCEPT: BUN/CREAT 32/1.22, GFR 47, GLUCOSE 256, ALBUMIN 2.7. PRELIMINARY BLOOD CULTURES REPORT NO GROWTH. WE WILL ATTEMPT TO CONTACT CARDIOLOGY AT A [facility]ERT[facility]. PATIENT IS WITH NEW ONSET HEART FAILURE WITH NO PRIOR CARDIAC HISTORY. PATIENT MAY NEED A HEART CATH. WE WILL CONTINUE LEVAQUIN IV, SOLUMEDROL, AND CONTINUE DUONEBS, AND MONITOR LABS AND CHEST XRAY. - Past Medical Family Social History Past Med/Fam/Surg Hx: No changes since H&P Allergies: Allergies No Known Drug Allergy Allergy (Verified 06/26/16 09:09) - Review of Systems ROS: No change since H&P - Vital Signs and I&O's Vital Signs: Temperature 98.1 F Pulse Rate [Right Brachial] 102 Pulse Rate 103 Respiratory Rate 20 Blood Pressure [Left Arm] 114/74 O2 Sat by Pulse Oximetry 93 Intake and Output: Intake & Output 06/27/16 06/28/16 06/29/16 06/30/16 11:59 11:59 11:59 11:59 Intake Total 2403 3884 2090 Output Total 1600 1600 3550 Balance 803 7294 -1460 - Physical Exam Oriented: Normal, Time, Person, Place Eyes: Normal. negative: Blurred Vision, Diplopia, Discharge, Pain, Redness, Photophobia Ear: Normal. negative: Swelling, Ecchymosis, Hemotypanum, Abrasion, Laceration Nose: Normal. negative: Injected, Discharge, Blood Throat: Red, Dry. negative: Tonsillar Hypertrophy, Exudate Respiratory: Generalized, Wheezes Cardiovascular: Normal. negative: Murmur, Edema : Normal. negative: Dysuria, Hematuria, Frequency, Discharge, Bleeding, Auscultation: Bowel Sounds: Normal. negative: Bruit Palpation: Normal. negative: Spleen Enlarged, Liver Enlarged, Mass Pulsatile Tenderness: Normal. negative: Rebound, Guarding, Rigidity Skin: Decreased Turgur. negative: Diaphoresis, Wound, Bruising, Ecchymosis Musculoskeletal: Normal Psychiatric: Normal Mood Description: Calm, Appropriate Affect: Normal Speech Pattern: Clear, Appropriate - Laboratory and Diagnostics Result Diagrams: 06/30/16 03:15 06/30/16 03:15 Labs: 06/27/16 15:15 Blood Blood Culture - Preliminary 06/27/16 15:10 Blood Blood Culture - Preliminary 06/26/16 18:34 Sputum - Expectorated Sputum Sputum Culture - Final 06/26/16 18:34 Sputum - Expectorated Sputum - Final Laboratory WBC 17.7 X10^3/uL (3.6-10.0) H 06/29/16 03:15 RBC 4.17 X10^6/uL (3.5-5.4) 06/29/16 03:15 Hgb 11.4 g/dL (12.0-16.0) L 06/29/16 03:15 Hct 35.7 % (36.0-47.0) L 06/29/16 03:15 MCV 85.7 fL (80.0-100.0) 06/29/16 03:15 MCH 27.4 pg (27.0-34.0) 06/29/16 03:15 MCHC 32.0 g/dL (33.0-35.0) L 06/29/16 03:15 RDW 13.6 % (11.6-16.5) 06/29/16 03:15 Plt Count 458 X10^3/uL (150.0-450.0) H 06/29/16 03:15 Plt Count Comment Increased (ADEQUATE) A 06/29/16 03:15 MPV 7.3 fL (7.4-11.0) L 06/29/16 03:15 Neut % 93.9 % (42.0-75.0) H 06/29/16 03:15 Lymph % 4.6 % (21.0-51.0) L 06/29/16 03:15 [place] % 1.4 % (0.0-13.0) 06/29/16 03:15 Eos % 0.0 % (0.9-2.9) L 06/29/16 03:15 Baso % 0.1 % (0.2-1.0) L 06/29/16 03:15 Neut # 16.6 x10^3/uL (2.2-4.8) H 06/29/16 03:15 Lymph # 0.8 X10^3/uL (1.3-2.9) L 06/29/16 03:15 [place] # 0.3 x10^3/uL (0.3-0.8) 06/29/16 03:15 Eos # 0.0 x10^3/uL (0.0-0.2) 06/29/16 03:15 Baso # 0.0 X10^3/uL (0.0-0.1) 06/29/16 03:15 Absolute Nucleated RBC 0.0 /100WBC 06/29/16 03:15 Total Counted 100 06/29/16 03:15 Neutrophils % (Manual) 95 % (39-76) H 06/29/16 03:15 Lymphocytes % (Manual) 3 % (13-43) L 06/29/16 03:15 Monocytes % (Manual) 2 % (4-9) L 06/29/16 03:15 Plt Morphology Comment Normal (NORMAL) 06/29/16 03:15 RBC Morphology Normal (NORMAL) 06/29/16 03:15 D-Dimer 2130 ng/mL (0-400) H* 06/26/16 09:33 Sample Site Lra 06/29/16 08:45 ABG pH 7.430 (7.35-7.45) 06/29/16 08:45 ABG pCO2 41.0 mmHg (35.0-45.0) 06/29/16 08:45 ABG pO2 37.0 mmHg (80.0-100.0) L* 06/29/16 08:45 ABG HCO3 27.2 mmol/L (22-26) H 06/29/16 08:45 ABG O2 Saturation 73.0 % (90-100) L* 06/29/16 08:45 ABG Base Excess 2.6 mmol/L (-2.0-2.0) H 06/29/16 08:45 Dev Test Pos 06/29/16 08:45 A-a Gradient 61.0 mmHg 06/29/16 08:45 FiO2 21.000 06/29/16 08:45 Blood Gas Comments Wilber well cs 06/29/16 08:45 Sodium 143 mmol/L (136-145) 06/29/16 03:15 Corrected Sodium 148 mmol/L (136-145) H 06/29/16 03:15 Potassium 3.9 mmol/L (3.5-5.1) 06/29/16 03:15 Chloride 105 mmol/L (98-107) 06/29/16 03:15 Carbon Dioxide 27.2 mmol/L (21-32) 06/29/16 03:15 BUN 31 mg/dL (7-18) H 06/29/16 03:15 Creatinine 1.26 mg/dL (0.55-1.02) H 06/29/16 03:15 Est GFR (MDRD) Af Amer 55 (>60) L 06/29/16 03:15 Est GFR (MDRD) Non-Af 45 (>60) L 06/29/16 03:15 Glucose 296 mg/dL (65-99) H 06/29/16 03:15 Calcium 8.5 mg/dL (8.5-10.1) 06/29/16 03:15 Corrected Calcium 9.5 mg/dL (8.5-10.1) 06/29/16 03:15 Total Bilirubin 0.20 mg/dL (0.2-1.0) 06/29/16 03:15 AST 11 Units/L (15-37) L 06/29/16 03:15 ALT 30 Units/L (12-78) 06/29/16 03:15 Alkaline Phosphatase 52 Units/L (46-116) 06/29/16 03:15 B-Natriuretic Peptide 1290 pg/mL (0-79) H* 06/27/16 05:40 Total Protein 6.8 g/dL (6.4-8.2) 06/29/16 03:15 Albumin 2.7 g/dL (3.4-5.0) L 06/29/16 03:15 Globulin 4.1 g/dL (2.5-4.5) 06/29/16 03:15 Albumin/Globulin Ratio 0.7 Ratio (1.1-2.1) L 06/29/16 03:15 - Plan (1) CHF (congestive heart failure) Status: Acute Qualifiers: Congestive heart failure type: C Congestive heart failure chronicity: C Plan: CONTACT [facility], CONTINUE SUPPLEMENTAL OXYGEN, CONTINOUS PULSE OXIMETRY, SOLUMEDROL, DIURETIC, MONITOR. (2) Pneumonia Status: Acute Qualifiers: Pneumonia type: due to unspecified organism Aspiration pneumonia type: A Laterality: left Lung location: lower lobe of lung Qualified Code(s): J18.1 - Lobar pneumonia, unspecified organism Plan: AWAIT BLOOD CULTURES C&S, CONTINUE LEVAQUIN IV, SOLUMEDROL, CONTINUE DUONEBS, SUPPLEMENTAL OXYGEN, MONITOR LABS AND CHEST XRAY. (3) Reactive airway disease with wheezing Status: Acute Qualifiers: Asthma severity: unspecified severity Asthma complication type: with acute exacerbation Qualified Code(s): J45.901 - Unspecified asthma with (acute) exacerbation Plan: CONTINUE DUONEBS, SUPPLEMENTAL OXYGEN, MONITOR LABS AND CHEST XRAY. (4) Shortness of breath Status: Acute Plan: ABOVE. (5) Respiratory distress Status: Acute Plan: ABOVE. (6) Cardiomegaly Status: Chronic (7) Hypertension Status: Chronic Qualifiers: Hypertension type: essential hypertension Qualified Code(s): I10 - Essential (primary) hypertension (8) GERD (gastroesophageal reflux disease) Status: Chronic Qualifiers: Esophagitis presence: esophagitis presence not specified Qualified Code(s) : K21.9 - Gastro-esophageal reflux disease without esophagitis (9) Diabetes Status: Chronic Qualifiers: Diabetes mellitus type: type 2 Diabetes mellitus complication status: with hyperglycemia Diabetes mellitus complication detail: D Diabetic retinopathy severity: D Proliferative retinopathy type: P Diabetes mellitus macular edema: D Diabetes mellitus adjunct faculty for medical terminology insulin use: without jail use Laterality: L Chronic kidney disease stage: C Qualified Code(s): E11.65 - Type 2 diabetes mellitus with hyperglycemia
[2016-06-29] MEDS ORDERED: SNACK - Diabetic Appropriate PO SCH (20:00)
[2016-06-30] MEDS: DUONEB 0.5 MG/3 MG NEB SCH ×4 (01:20→13:13)
[2016-06-30 05:28] LABS: ALBUMIN 2.7 g/dL (3.4-5.0); CALCIUM 8.6 mg/dL (8.5-10.1); CARBON DIOXIDE 28.7 mmol/L (21-32); COR CA(FOR HYPOALB) 9.6 mg/dL (8.5-10.1); CREATININE 1.22 mg/dL (0.55-1.02); TOTAL PROTEIN 6.6 g/dL (6.4-8.2)
[2016-06-30 05:31] LABS: BASOPHILS % (AUTO) 0.1 % (0.2-1.0); EOSINOPHILS % (AUTO) 0.1 % (0.9-2.9); HEMATOCRIT 35.7 % (36.0-47.0); HEMOGLOBIN 11.7 g/dL (12.0-16.0); LYMPHOCYTES # (AUTO) 0.8 X10^3/uL (1.3-2.9); MEAN CORPUSCULAR HEMOGLOBIN 27.7 pg (27.0-34.0); MEAN CORPUSCULAR HGB CONC 32.9 g/dL (33.0-35.0); MEAN CORPUSCULAR VOLUME 84.1 fL (80.0-100.0); MEAN PLATELET VOLUME 7.4 fL (7.4-11.0); MONOCYTES # (AUTO) 0.4 x10^3/uL (0.3-0.8); MONOCYTES % (AUTO) 2.2 % (0.0-13.0); NEUTROPHILS # (AUTO) 15.6 x10^3/uL (2.2-4.8); NEUTROPHILS % (AUTO) 92.6 % (42.0-75.0); PLATELET COUNT 443 X10^3/uL (150.0-450.0); RED BLOOD COUNT 4.24 X10^6/uL (3.5-5.4); RED CELL DISTRIBUTION WIDTH 13.8 % (11.6-16.5); WHITE BLOOD COUNT 16.8 X10^3/uL (3.6-10.0)
[2016-06-30] MEDS: SOLU-Medrol 40 MG VIAL IVP SCH (05:58)
[2016-06-30] MEDS: HumuLIN R SC PRN ×2 (05:59→11:09)
[2016-06-30 06:18] LABS: BAND NEUTROPHILS % 2 % (0-10); PLATELET MORPHOLOGY COMMENT NORMAL (NORMAL)
--- NOTE | 2016-06-30 06:55 | RAD ---
HISTORY: Cough, congestion Study: Chest one view Comparison: June 29, 2016 Findings: The heart is enlarged. No congestive heart failure is noted. No acute alveolar infiltrates or pleura l effusions are identified. There is subsegmental atelectasis in the left lung base. The bony thorax is unremarkable. IMPRESSION: Cardiomegaly without congestive heart failure Subsegmental atelectasis left lung base Reported By:
[2016-06-30 08:46] VITALS: BP 126/85
[2016-06-30] MEDS: PULMICORT NEB TX 0.5 MG NEB SCH (08:59)
[2016-06-30] MEDS ORDERED: PEPCID 20 MG IV PREMIX* 20 MG/50 ML BAG IV SCH (09:00)
[2016-06-30] MEDS: GLUCOTROL XL PO SCH (09:03)
[2016-06-30] MEDS: VITAMIN D3 PO SCH (09:03)
[2016-06-30] MEDS: NORVASC TAB 5 MG PO SCH (09:03)
[2016-06-30] MEDS: PROTONIX INJ 40 MG VIAL IVP SCH (09:03)
[2016-06-30] MEDS: LEVAQUIN PREMIX IV 750 MG 750 MG/150 ML BAG IV SCH (09:03)
[2016-06-30] MEDS: ASPIRIN 81 MG CHEWTAB PO SCH (09:03)
[2016-06-30] MEDS ORDERED: SOLU-Medrol 40 MG VIAL IVP SCH (14:00)
== END 2016-06-30 14:10 | disposition short-term general hospital (02) | DRG 194 ==
LOC: ER 09:27 → ICU 15:05
PROVIDERS: ADMIT Internal Medicine; ATTEND Internal Medicine
DX: J18.1 Lobar pneumonia, unspecified organism (principal); J45.901 Unspecified asthma with (acute) exacerbation; R06.00 Dyspnea, unspecified; I51.7 Cardiomegaly; J90 Pleural effusion, not elsewhere classified; K21.9 Gastro-esophageal reflux disease without esophagitis; I10 Essential (primary) hypertension; I50.9 Heart failure, unspecified; R09.02 Hypoxemia
CPT/HCPCS: 36415; 36600; 71010; 71020; 71275; 80053; 82803; 83880; 85025; 85378; 87040; 87070; 87205; 93005; 94640; 96365; 96367; 96374; 96375; 99284; A4216; A4222; C9113; S0028; J1815; J1940; J1956; J2920; J2930; J7620; J7626